=== PATIENT | male | born 1950 | race Caucasian/White ===

== ENCOUNTER 2017-11-13 06:05 | Day surgery (SDC) | payer MEDICARE, OTHER ==
[2017-11-12 15:35] LABS: BASOPHILS 0.3 % (0-2); EOSINOPHILS 2.6 % (0-7); HEMATOCRIT 40.9 % (42.0-54.0); HEMOGLOBIN 14.6 g/dL (13.5-17.5); IMMATURE GRANULOCYTES 0.3 % (0-5); LYMPHOCYTES 23.6 % (15-50); MCH 32.7 pg (26.0-34.0); MCHC 35.7 g/dL (31.0-37.0); MCV 91.7 fL (80.0-100.0); MEAN PLATELET VOLUME 10.7 fL (7.4-10.4); MONOCYTES 6.6 % (2-11); NEUTROPHILS 66.6 % (40-80); PLATELET COUNT 141 10x3/uL (130-400); RBC 4.46 10x6/uL (4.20-6.10); RDW 12.5 % (11.5-14.5); WBC 7.7 10x3/uL (4.8-10.8)
[2017-11-12 15:41] LABS: ANION GAP 10.1 mmol/L (8-16); CALCIUM 8.5 mg/dL (8.5-10.1); CREATININE - SERUM 1.2 mg/dL (0.6-1.3); POTASSIUM - SERUM 4.1 mmol/L (3.5-5.1)
[~2017-11-13] VITALS: Ht 177.8 cm; Wt 81.2 kg
--- NOTE | ~2017-11-13 | OP ---
PATIENT NAME: MANJEET TRAMMELL MEDICAL RECORD: [id number] :50 LOCATION:IAN ADMISSION DATE: SURGEON: VIMAL GARRISON MD DATE OF OPERATION: 11/13/2017 PREOPERATIVE DIAGNOSIS: Bilateral inguinal hernias. POSTOPERATIVE DIAGNOSIS: Bilateral inguinal hernias. PROCEDURE: Bilateral inguinal hernia repairs with medium PHS mesh. SURGEON: Vimal Garrison MD REPORT OF PROCEDURE: The patient's bilateral groins were prepped and draped in sterile fashion. We approached the right side first. An oblique incision was made above the inguinal ligament. Electrocautery was used to dissect through the subcutaneous tissues down to the external oblique fascia. This fascia was opened up to the external ring using Metzenbaum scissors. We then found the ilioinguinal nerve and this was high ligated. A [place]mont was placed around the spermatic cord. The patient was noted to have a moderate-sized cord lipoma, which was high ligated with a 3-0 silk. The base of the inguinal canal was very lax with some protuberance consistent with a wide-based direct hernia. An opening was made in the floor and the preperitoneal space of Retzius was out and a medium PHS mesh was inserted. This was sutured down on all 4 sides using multiple interrupted 0 Vicryls. We then irrigated out the wound and assured there was no sign of any bleeding. The external oblique fascia was closed with running 2-0 Vicryl, Renetta's was closed with interrupted 3-0 Vicryl, and the skin was closed with running subcutaneous 5-0 Monocryl. A total of 10 mL of 0.25% Marcaine with epinephrine was infused into the surrounding tissues. At this point, we approached the left side. An oblique incision was then made above the inguinal ligament. Electrocautery was used to dissect through the subcutaneous tissues down to the external oblique fascia. This fascia was opened up to the external ring using Metzenbaum scissors. The ilioinguinal nerve was found and high ligated. We then placed a Hilario around the spermatic cord. The patient was again noted to have a moderate-sized cord lipoma, which was high ligated with 3-0 silk. The patient had a lot of laxity to the inguinal floor consistent with a direct hernia defect. This was opened up and the preperitoneal space of Retzius was out. A medium PHS mesh was then inserted and sutured down on all sides using multiple interrupted 0 Vicryls. The wound was then irrigated out with normal saline and care was taken to assure there was no sign of any active bleeding. The external oblique fascia was then closed with running 2-0 Vicryl, Renetta's was closed with interrupted 3-0 Vicryl, and the skin was closed with running subcutaneous 5-0 Monocryl. A 10 mL of 0.25% Marcaine with epinephrine were infused into the surrounding tissues and then the 2 wounds were dressed appropriately. COMPLICATIONS: None. CONDITION: Stable. ANESTHESIA: General endotracheal and local. BLOOD LOSS: 30 mL. TRANSINT:[id number] Voice Confirmation ID: [id number] DOCUMENT ID: [id number] OPERATIVE REPORT [id number] MANJEET TRAMMELL CHRISTIAN MD at 2258 CC: QUIN MUNOZ MD [id number] DICTATION DATE: 11/13/17905 ADJUNCT INSTRUCTOR: 11/13/17 1031 [facility] 11/13/17 [facility] [address] [place] [address]
[2017-11-13 06:42] VITALS: BP 122/72; Ht 177.8 cm; Wt 81.2 kg
[2017-11-13] MEDS ORDERED: HYDROCODONE-APA1 TAB PO (09:02)
== END 2017-11-13 12:00 | disposition home or self-care (01) ==
LOC: D.OPS 06:05 → D.PAN 08:00 → D.OPS 12:00
PROVIDERS: Surgery
DX: K40.20 Bilateral inguinal hernia, without obstruction or gangrene, not specified as recurrent (principal); Z01.812 Encounter for preprocedural laboratory examination

== ENCOUNTER 2019-05-10 07:30 | Outpatient (CLI) | payer MEDICARE, BC ==
[~2019-05-10] VITALS: Ht 177.8 cm; Wt 81.8 kg
--- NOTE | ~2019-05-10 | OP ---
PATIENT NAME: MANJEET TRAMMELL MEDICAL RECORD: [id number] :50 LOCATION:D.CAT ADMISSION DATE: SURGEON: LEONELA PARKER MD DATE OF OPERATION: 05/10/2019 PROCEDURES: 1. PTCA stent LAD. 2. IFR. 3. Left heart catheterization. 4. Selective coronary angiography. DESCRIPTION OF PROCEDURE: After informed consent was obtained and after a detailed description of the risks, benefits as well as alternative therapies, the patient elected to proceed with angiogram and angioplasty. The right radial area was prepped and draped in normal sterile fashion. Right radial artery was cannulated via modified Seldinger technique with placement of 6-Mongolian sheath. All catheters exchanged through this sheath. FINDINGS: Left ventriculogram was performed in a standard 30-degree SAAB view, reveals good cardiac wall motion, ejection fraction estimated 60%. SELECTIVE CORONARY ANGIOGRAPHY: 1. Left main is with no significant angiographic disease. 2. Left anterior descending has a 70% stenosis in the proximal vessel. An IFR was abnormal. 3. Left circumflex has mild irregularities, but no flow-limiting stenosis. 4. Right coronary was very difficult to engage from the right radial approach. This has never really got engaged, but there is at least 80% stenosis at the ostium of the RCA. PTCA STENT OF THE LAD: The stent used was a 3.5 x 18 mm Integrity. Result was 0% residual stenosis. OVERALL IMPRESSION: Successful percutaneous transluminal coronary angioplasty stent of the left anterior descending going from 70% initial stenosis to 0% residual. PLAN: PTCA stent of the RCA via femoral approach in the near future. TRANSINT:[id number] Voice Confirmation ID: [id number] DOCUMENT ID: [id number] LEONELA PARKER MD CC: [id number] DICTATION DATE: 05/10/19 1000 BABY FORMULA WORKER: 05/10/19 1354 DEP CLI 05/10/19 [facility] [address] [place] [id number]
--- NOTE | ~2019-05-10 | HEMODYNAMI ---
PATIENT:MANJEET TRAMMELL MEDICAL RECORD: [id number] : 50 LOCATION:[facility] ADMISSION DATE: 05/10/19 Generatedon:05/10/201910:02 Patient name: MANJEET TRAMMELL Patient #: [id number] SSN: [id number] : 1950 Date of study: 05/10/2019 Page: Of Hemodynamic Procedure Report Patient Data Patient Demographics Procedure consent was obtained First Name: MANJEET Gender: Male Last Name: VALERI : 1950 Patient #: [id number] Age: 69 year(s) Race: SSN: [id number] Additional ID: [id number] Contact details Address: [address] [place] [address] State: [place] City: [facility] Zip code: [address] Past Medical History Allergies Allergen Reaction Date Comments Reported Other allergy 05/10/2019 WALNUTS, PEPPERMINTS Admission Admission Data Admission Date: 05/10/2019 Admission Time: 7:30 Arrival Date: 05/10/2019 Arrival Time: 9:30 Admit Source: Other Insurance Payor: Medicare, Private health insurance [facility] #: [id number] Height (in.): 69.69 BSA: 1.98 (m2) Height (cm.): 177 BMI: 25.85 (kg/m2) Weight (lbs.): 178.58 Weight (kg.): 81 Lab Results Lab Result Date: 05/10/2019 Lab Result Time: 0:00 Biochemistry Name Units Result Min Max BUN mg/dl 15 --(--*-)-- 7 18 Creatinine mg/dl 1.1 --(--*-)-- 0.6 1.3 eGFR ml/min 70.80039 *-(----)-- 90 120 NONAFRICAN CBC Name Units Result Min Max Hemoglobin g/dl 15 --(-*--)-- 13.5 17.5 Procedure Procedure Types Cath Procedure Diagnostic Procedure LHC LHC w/Coronaries FFR/IVUS FFR Initial Sedation Charges Moderate Sedation up to 30 minutes PCI Procedure Coronary Stent Coronary Stent Initial Hemochron ACT Test Procedure Description Procedure Date Procedure Date: 05/10/2019 Procedure Start Time: 9:39 Procedure End Time: 9:57 Procedure Staff Name Function Vishal Torres MD Performing Physician Jennie Purdy RT Monitor Angela Griggs RT Scrub Carmelina Miguel RN Nurse Procedure Data Cath Procedure Fluoroscopy Diagnostic fluoroscopy Total fluoroscopy Time: 5.6 time: 5.6 min min Diagnostic fluoroscopy Total fluoroscopy dose: 788 dose: 788 mGy mGy Contrast Material Contrast Material Type Amount (ml) Isovue 300 108 Entry Location Entry Primary Successful Side Size Upsize Upsize Entry Closure Cline ccessful Closure Location (Fr) 1 (Fr) 2 (Fr) Remarks Device Remarks Radial Right 6 Fr Mechanical artery Short Compression Estimated blood loss: 5 ml Diagnostic catheters Device Type Used For End Catheter Placement DIAGNOSTIC Falcon 110cm 5 Procedure Fr catheter ([id number]) DIAGNOSTIC AR MOD 5Fr Procedure Catheter ([id number]) Procedure Complications No complications Procedure Medications Medication Administration Route Dosage 0.9% NaCl I.V. 100 ml/hr Oxygen etCO2 Nasal cannula 2 l/min Lidocaine 2% added to field 20 Heparin Flush Bag added to field 2 bags (1000units/500ml NS) Radial Cocktail added to field 1 syringe (Verapamil 2mg/Nitro 400mcg/Heparin 1500units) Versed I.V. 2 mg Fentanyl I.V. 50 mcg Versed I.V. 2 mg Fentanyl I.V. 50 mcg Heparin Bolus I.V. 4000 units Integrilin (Bolus I.V. 7.3 ml 2mg/ml) Integrilin (Bolus wasted 2.7 ml 2mg/ml) Plavix P.O. 600 mg Hemodynamics Rest BSA: 1.98 (m2) HGB: 15 (g/dl) O2 Consumption: Estimated: 228.95 (ml/min) O2 Cons umption indexed: Estimated:115.63 (ml/min/m) Heart Rate: 69 (bpm) Snapshots Pre Cath Intra NCS Post Cath Vital Signs Time Heart Resp SPO2 etCO2 NIBP (mmHg) Rhythm Pain Sedation Rate (ipm) (%) (mmHg) Status Level (bpm) 9:22:57 69 17 97 38 138/80(111) NSR 0 (11) 10(A) , No pain 9:27:11 71 13 98 35.8 137/73(107) NSR 0 (11) 10(A) , No pain 9:31:23 63 17 96 38.8 135/73(96) NSR 0 (11) 10(A) , No pain 9:35:35 65 14 98 41.8 124/71(99) NSR 0 (11) 10(A) , No pain 9:39:43 65 14 95 40.3 117/71(108) NSR 0 (11) 10(A) , No pain 9:43:50 75 14 96 39.5 104/66(98) NSR 0 (11) 10(A) , No pain 9:47:52 70 16 97 35 114/65(80) NSR 0 (11) 9(A) , No pain 9:51:58 76 16 97 44 113/67(100) NSR 0 (11) 9(A) , No pain 9:56:06 69 17 96 32.1 114/60(84) NSR 0 (11) 10(A) , No pain Medications Time Medication Route Dose Verified Delivered Reason Note s Effectiveness by by 9:21:56 0.9% NaCl I.V. 100 Vishal Carmelina used for ml/hr Melissa Miguel agility instructor 9:22:02 Oxygen etCO2 2 l/min Vishal Carmelina used for Nasal Melissa Miguel procedure cannula RN 9:22:09 Lidocaine 2% added 20ml Vishal Vishal for local to vial Melissa Torres MD anesthetic field 9:22:14 Heparin Flush added 2 bags Vishaldada Rodgers used for Bag to Melissa Torres MD procedure (1000units/500ml field NS) 9:22:24 Radial Cocktail added 1 Vishal Vishal used for (Verapamil to syringe Melissa Torres MD procedure 2mg/Nitro field 400mcg/Heparin 1500units) 9:37:27 Versed I.V. 2 mg Vishal Carmelina for sedation Melissa Miguel RN 9:37:33 Fentanyl I.V. 50 mcg Vishal Carmelina for sedation Melissa Miguel RN 9:43:30 Versed I.V. 2 mg Vishal Carmelina for sedation Melissa Miguel RN 9:43:37 Fentanyl I.V. 50 mcg Vishal Cosme for sedation Melissa Miguel RN 9:46:48 Heparin Bolus I.V. 4000 Vishal Kata for veri fied units Melissa Miguel anticoagulation with Dr. DEVIKA Torres 9:47:01 Integrilin I.V. 7.3 ml Vishal Kata for (Bolus 2mg/ml) Melissa Miguel antiplatelet RN therapy 9:47:12 Integrilin wasted 2.7 ml Vishal Kata for (Bolus 2mg/ml) Melissa Miguel antiplatelet RN therapy 9:47:24 Plavix P.O. 600 mg Vishal Reinosoyla for Melissa Miguel antiplatelet RN therapy Procedure Log Time Note 8:52:55 Informed consent obtained and on chart 8:54:16 Admit Source: Other 9:06:34 Diagnostic Cath Status : Elective 9:07:10 Jennie GLOVER(R) sent for patient. Start room use. 9:07:12 Time tracking: Regular hours (M-F 7:00 - 5:00) 9:07:18 Plan of Care:Hemodynamics will remain stable., Cardiac rhythm will remain stable., Comfort level will be maintained., Respiratory function will remain adequate., Patient/ family verbilizes understanding of procedure., Procedure tolerated without complication., Recovers from procedure without complications.. 9:10:55 Lab Result : Hemoglobin 15 g/dl 9:10:55 Lab Result : eGFR NONAFRICAN 70.51005 ml/min 9:10:55 Lab Result : BUN 15 mg/dl 9:10:55 Lab Result : Creatinine 1.1 mg/dl 9:14:30 Arrival Date: 05/10/2019 9:30:00 AM 9:15:07 Insurance Payor : Private health insurance, Medicare 9:15:19 Patient Height : 69.69 inches 9:15:24 Patient Weight : 178.58 lbs 9:16:54 Patient received from Pre/Post Procedure Room to CCL 2 Alert and oriented. Tansferred to table in Supine position. 9:16:55 Warm blankets applied, and abigail hugger turned on for patient comfort. 9:16:56 Correct patient and procedure confirmed by team. 9:16:56 ECG and BP/O2 sat monitors applied to patient. 9:21:47 Vital chart was started 9:21:56 0.9% NaCl 100 ml/hr I.V. was administered by Caremlina Miguel RN; used for procedure; Verbal order read back and verified. 9:22:02 Oxygen 2 l/min etCO2 Nasal cannula was administered by Carmelina Miguel RN; used for procedure; Verbal order read back and verified. 9:22:09 Lidocaine 2% 20ml vial added to field was administered by Vishal Torres MD; for local anesthetic; Verbal order read back and verified. 9:22:14 Heparin Flush Bag (1000units/500ml NS) 2 bags added to field was administered by Vishal Torres MD; used for procedure; Verbal order read back and verified. 9:22:24 Radial Cocktail (Verapamil 2mg/Nitro 400mcg/Heparin 1500units) 1 syringe added to field was administered by Vishal Torres MD; used for procedure; Verbal order read back and verified. 9:24:37 Baseline sample Acquired. 9:24:40 Rhythm: sinus rhythm 9:24:42 Full Disclosure recording started 9:24:51 H&P Date Dictated: 04/20/2019 Within 30 days and on chart., H&P Addendum completed by physician on day of procedure. (MUST COMPLETE FOR ALL OUTPATIENTS). 9:24:52 Pre-procedure instructions explained to patient. 9:24:52 Pre-op teaching completed and patient verbalized understanding. 9:24:53 Family in patients room. 9:24:55 Patient NPO since Midnight. 9:25:12 Patient allergic to Other allergyWALNUTS, PEPPERMINTS 9:25:15 Is patient on blood thinner?No 9:25:33 Patient diabetic? No. 9:25:37 Previous problem with sedation/anesthesia? No ? 9:25:38 Snore? Yes 9:25:39 Sleep apnea? No 9:25:41 Deviated septum? No 9:25:41 Opens mouth fully? Yes 9:25:43 Sticks out tongue? Yes 9:25:45 Airway obstruction? No ? 9:25:48 Dentures? Yes OUT 9:25:52 Pre procedure: right dorsailis pedis pulse 1+ Palpable, but thready & weak; easily obliterated 9:25:54 Modified Kenneth's test Ulnar < 7 seconds 9:25:56 Patient pain scale 0/10 ?. 9:26:05 IV patent on arrival in left wrist with 0.9% NaCl at KVO. 9:26:07 Lab results completed and on chart. 9:26:10 Right Radial & Right Groin area was prepped with chlora-prep and draped in sterile fashion 9:26:11 Alarms reviewed by R. N. 9:26:11 Sharps counted by scrub and verified by R.N. 9:26:14 Use device set Radial Dx or PCI 9:26:15 ACIST Syringe (76935) opened to sterile field. 9:26:15 Bag Decanter (2002S) opened to sterile field. 9:26:16 ACIST Hand Control (17296) opened to sterile field. 9:26:16 ACIST Manifold (18484) opened to sterile field. 9:26:16 Tegaderm 4 x 4 (1626W) opened to sterile field. 9:26:17 Medline Cath Pack ([id number]) opened to sterile field. 9:26:18 MBrace Wrist Support ([id number]) opened to sterile field. 9:26:19 EMERALD Guide Wire (816-575) opened to sterile field. 9:26:20 SHEATH 6FR RAIN (1528903) opened to sterile field. 9:30:55 Physician arrived 9:30:56 --------ALL STOP TIME OUT------ 9:30:57 Final Timeout: patient, procedure, and site verified with staff and physician. All members of the team are in agreement. 9:31:00 Right Radial & Right Groin site verified by team. 9:31:04 Fire Safety Assessment: A--An alcohol-based skin anteseptic being used preoperatively., C--Open oxygen or nitrous oxide is being used., D--An ESU, laser, or fiber-optic light is being used. 9:31:13 Physical assessment completed. ASA score P 3 - A patient with severe systemic disease as per Vishal Torres MD. 9:36:38 2) 60-89 Mildly reduced kidney function, and other findings (as for stage 1) point to kidney disease. 9:36:43 Maximum allowable contrast dose (3.7 X eGFR X 0.75)194 ml. 9:36:48 Sedation plan: IV Moderate Sedation Medication:Versed, Fentanyl 9:37:27 Versed 2 mg I.V. was administered by Carmelina Miguel RN; for sedation; Verbal order read back and verified. 9:37:33 Fentanyl 50 mcg I.V. was administered by Carmelina Miguel RN; for sedation; Verbal order read back and verified. 9:39:26 Procedure started. 9:39:37 Local anesthetic to right radial artery with Lidocaine 2% by Vishal Torres MD.INITIAL ACCESS ONLY 9:39:48 A 6 Fr Short sheath was inserted into the Right Radial artery 9:40:27 A DIAGNOSTIC Falcon 110cm 5 Fr catheter (933934) was advanced over the wire and used for Procedure. 9:41:41 EF : 60 % 9:42:11 LCA angiography performed. 9:43:30 Versed 2 mg I.V. was administered by Carmelina Miguel RN; for sedation; Verbal order read back and verified. 9:43:37 Fentanyl 50 mcg I.V. was administered by Carmelina Miguel RN; for sedation; Verbal order read back and verified. 9:44:59 Catheter removed. 9:45:13 A DIAGNOSTIC AR MOD 5Fr Catheter (024038F) was advanced over the wire and used for Procedure. 9:45:18 RCA angiography performed. 9:45:20 Catheter removed. 9:45:41 GUIDE 6FR XB 3.5 catheter ([id number]) opened to sterile field. 9:45:42 INFLATOR Merit BasixCompak (LC2677) opened to sterile field. 9:45:43 Mcdermott Verrata Plus pressure wire (84985C) opened to sterile field. 9:45:48 Proceeding to intervention. 9:46:00 6 Fr XB3.5 guide catheter was inserted over the wire 9:46:21 IFR wire advanced. 9:46:48 Heparin Bolus 4000 units I.V. was administered by Carmelina Miguel RN; for anticoagulation; verified with Dr. Torres Verbal order read back and verified. 9:47:01 Integrilin (Bolus 2mg/ml) 7.3 ml I.V. was administered by Carmelina Miguel RN; for antiplatelet therapy; Verbal order read back and verified. 9:47:12 Integrilin (Bolus 2mg/ml) 2.7 ml wasted was administered by Carmelina Miguel RN; for antiplatelet therapy; Verbal order read back and verified. 9:47:24 Plavix 600 mg P.O. was administered by Carmelina Miguel RN; for antiplatelet therapy; Verbal order read back and verified. 9:51:45 pLAD lesion measured at .83 with IFR 9:51:58 Pre PCI Site: [place] pLAD has 70% stenosis. 9:52:36 Place stent Inflation Number: 1 A INTEGRITY RX 3.5 x 18 stent ([id number]) was prepped and advanced across the Prox LAD 70. The stent was deployed at 11 VANDANA for 0:09 (min:sec) . 9:52:57 ZEPHYR REGULAR TR BAND (901688) opened to sterile field. 9:53:13 Wire removed. 9:53:13 Guide catheter removed. 9:53:35 Sheath removed intact; hemostasis achieved with Mechanical Compression to the Right Radial artery. 9:53:40 Procedure ended.(Physican Out) 9:53:51 Fluoroscopy time 05.60 minutes. 9:53:57 Fluoroscopy dose: 788 mGy 9:53:57 Flurop Dose total: 788 9:54:02 Dose Area Product 36112 mGy/cm. 9:54:08 Contrast amount:Isovue 300 108ml. 9:54:12 Maximum allowable dose exceeded? No. 9:54:14 Sharps counted by scrub and verified by R.N. 9:54:18 Elgin band inflated with 10cc of air. 9:54:23 Insertion/operative site no bleeding no hematoma. 9:54:25 Post Procedure Pulses reassessed and unchanged 9:54:30 Post-procedure physical assessment completed. ASA score P 3 - A patient with severe systemic disease as per Vishal Torres MD. 9:54:33 Post procedure rhythm: sinus rhythm 9:54:40 Estimated blood loss: 5 ml 9:54:44 Post procedure instruction explained to patient.Patient verbalizes understanding. 9:55:14 Procedure type changed to Cath procedure, Diagnostic procedure, LHC, LHC w/Coronaries, FFR/IVUS, FFR Initial, Sedation Charges, Moderate Sedation up to 30 minutes, PCI procedure, Coronary Stent, Coronary Stent Initial, Hemochron ACT Test 9:55:16 Procedure and supply charges have been captured, reviewed, submitted and are correct. 9:56:13 Procedure and supply charges have been captured, reviewed, submitted and are correct. 9:56:42 Procedure Complication : No complications 9:56:45 Vital chart was stopped 9:56:52 [facility] Findings: MVD- PCI performed (see procedure note) 9:56:54 Operative report dictated upon procedure completion. 9:56:57 See physician's report for complete and final results. 9:56:59 Report given to Pre/Post Procedure Room. 9:57:03 Patient transfered to Pre/Post Procedure Room with Stretcher. 9:57:05 Procedure ended. 9:57:05 Full Disclosure recording stopped 9:57:12 End room use (Document Last) 9:57:19 ACC-PCI Only Patient was given prescriptions, or instructed by Vishal Torres MD to start/continue the following medications upon discharge: Plavix 9:59:08 ACT drawn and resulted at >400-out of range seconds. (normal therapeutic range 180-240 seconds). Intervention Summary Intervention Notes Time ActionType Lesion and Equipment Action# Pressure Duration Attributes Used 9:52:36 Place stent Prox LAD INTEGRITY RX 1 11 00:09 3.5 x 18 stent ([id number]) Device Usage Item Name Manufacture Quantity Catalog Hospital Part Current Min imal Lot# / Number Charge Number Stock Stock Serial# Code ACIST Acist 1 21358 642082 396777 568079 20 Syringe Medical (02191) Systems Inc Bag Decanter Microtek 1 2001S 083875 79087 272774 5 (2001S) Medical Inc. ACIST Hand Acist 1 20389 838777 989685 024177 5 Control Medical (57640) Systems Inc ACIST Acist 1 51651 115990 724489 860055 5 Manifold Medical (52402) Systems Inc Tegaderm 4 x 3M 1 1626W 154153 400134 107093 5 4 (1626W) Medline Cath Medline 1 [id number] 369808 05464 962138 5 Pack ([id number]) MBrace Wrist Advanced 1 140-0250-00 007079 40277 501914 5 Support Vascular (210118321) Dynamics EMERALD Cardinal 1 253-525 326756 386323 559223 5 Guide Wire [facility] (885-688) SHEATH 6FR Cardinal 1 5523038 564931 9336117 276661 5 RAIN [facility] (6652069) DIAGNOSTIC Terumo 1 40-4429 535610 793731 555722 5 Falcon 110cm 5 Fr catheter (142260) DIAGNOSTIC Cardinal 1 [id number] 696349 530878 654302 15 AR MOD 5Fr Health Catheter (061173P) GUIDE 6FR XB Cardinal 1 47822845 923027 036121 061099 2 3.5 catheter Health (73718952) INFLATOR Merit 1 UN9968 849041 731910 354341 15 Merit Medical BasixCompak (FW8034) Mcdermott Mcdermott 1 65362H 420495 183098999 455707 5 Verrata Plus pressure wire (68495L) INTEGRITY RX Medtronic 1 [id number] 943792 622042 428228 5 [id number] 3.5 x 18 stent ([id number]) ZEPHYR Cardinal 1 758882 911385 6744280 778946 5 REGULAR TR Health BAND (424789) Signature Audit [place] Stage Time Signature Unsigned Intra-Procedure 05/10/2019 Jennie Purdy 9:58:02 AM RT(R) Intra-Procedure 05/10/2019 Carmelina Miguel 10:01:42 AM RN Intra-Procedure 05/10/2019 Vishal Torres 10:02:09 AM Signatures Performing Physician : Signature : Vishal Torres MD Date : Time : Monitor : Jnenie Purdy Signature : RT Date : Time : Nurse : Carmelina Miguel RN Signature : Date : Time : [facility] [address], [place] [address]
[~2019-05-10 07:30] MED LIST: HYDROCODONE-APA1 TAB PO
[2019-05-10] MEDS ORDERED: FLUTICASONE PRO16 GM NASAL (07:49)
[2019-05-10 08:02] VITALS: BP 117/63; Ht 177.8 cm; Wt 81.8 kg
[2019-05-10 08:58] LABS: ANION GAP 11.4 mmol/L (8-16); BASOPHILS 0.5 % (0-2); CALCIUM 8.9 mg/dL (8.5-10.1); CARBON DIOXIDE 27.4 mmol/L (21.0-32.0); CHOL - HDL RATIO 4.4 ratio (2.3-4.9); CREATININE - SERUM 1.1 mg/dL (0.6-1.3); EOSINOPHILS 1.8 % (0-7); HEMATOCRIT 41.7 % (42.0-54.0); IMMATURE GRANULOCYTES 0.2 % (0-5); LYMPHOCYTES 28.3 % (15-50); MCH 33.1 pg (26.0-34.0); MCV 92.1 fL (80.0-100.0); MEAN PLATELET VOLUME 11.1 fL (7.4-10.4); MONOCYTES 9.1 % (2-11); NEUTROPHILS 60.1 % (40-80); PLATELET COUNT 136 10x3/uL (130-400); POTASSIUM - SERUM 3.8 mmol/L (3.5-5.1); RBC 4.53 10x6/uL (4.20-6.10); RDW 12.7 % (11.5-14.5); WBC 5.5 10x3/uL (4.8-10.8)
[2019-05-10] MEDS ORDERED: BAYER CHEWABLE81 MG PO (10:06)
[2019-05-10] MEDS ORDERED: PLAVIX75 MG PO (10:06)
--- NOTE | 2019-05-10 10:10 | NUR ---
REC'D TO ROOM 8 VIA STRETCHER, S/P SOCK AND STOCKING IRONER. MONITORS ESTAB. AT BS. PT DENIES PAIN OR NEEDS. SEE TRUCK DOCK MATERIAL MOVER. ALARMS ON AND C/L IN REACH.
--- NOTE | 2019-05-10 10:23 | NUR ---
R WRIST SITE C/D/I, NO S/S BLEEDING OR HEMATOMA. VSS. ALARMS ON.
--- NOTE | 2019-05-10 10:54 | NUR ---
PT RESTING QUIETLY. R WRIST SITE C/D/I, NO S/S BLEEDING OR HEMATOMA. REMAINS AT BS. C/L IN REACH.
--- NOTE | 2019-05-10 11:09 | NUR ---
R WRIST SITE C/D/I. VSS. PT DENIES NEEDS.
--- NOTE | 2019-05-10 11:15 | NUR ---
DR. PARKER IN TO UPDATE PT AND . PLAN FOR GARMENT STEAMER THIS FRIDAY.
--- NOTE | 2019-05-10 11:45 | NUR ---
R WRIST SITE C/D/I, NO S/S BLEEDING OR HEMATOMA. PT GIVEN TEA PER REQUEST. VSS. C/L IN REACH.
--- NOTE | 2019-05-10 12:05 | NUR ---
SANDWICH TRAY PROVIDED. R WRIST SITE C/D/I. VSS. AT BS.
[2019-05-10] MEDS ORDERED: PRAVACHOL40 MG PO (12:29)
--- NOTE | 2019-05-10 12:37 | NUR ---
PRESCRIPTIONS CALLED IN TO [facility] PER PT REQUEST.
--- NOTE | 2019-05-10 13:00 | NUR ---
3CC AIR REMOVED FROM Z BAND. NO S/S BLEEDING OR HEMATOMA.
--- NOTE | 2019-05-10 13:15 | NUR ---
TOTAL 5CC AIR REMOVED FROM Z BAND. NO S/S BLEEDING/HEMATOMA. VSS.
--- NOTE | 2019-05-10 13:40 | NUR ---
ALL AIR REMOVED FROM Z BAND, NO S/S BLEEDING OR HEMATOMA.
--- NOTE | 2019-05-10 13:45 | NUR ---
PIV D/C'D INTACT, DSG APPLIED. PT UP TO BR INDEPENDENTLY. R WRIST SITE C/D/I.
--- NOTE | 2019-05-10 13:45 | NUR ---
PIV D/C'D INTACT, DSG APPLIED. PT UP TO BR INDEPENDENTLY.
--- NOTE | 2019-05-10 13:50 | NUR ---
ALL DISCHARGE INSTRUCTIONS REVIEWED WITH PT AND HIS - INCLUDING MEDICATIONS, RESTRICTIONS AND PLANNED PROCEDURE FOR FRIDAY. PT ALLOWED TO GET UP AND GET DRESSED.
--- NOTE | 2019-05-10 13:50 | NUR ---
ALL D/C INSTRUCTIONS REVIEWED WITH PT AND - INCLUDING MEDICATIONS, RESTRICTIONS AND PLAN FOR PROCEDURE FRIDAY. PT UP TO GET DRESSED.
--- NOTE | 2019-05-10 14:00 | NUR ---
Z BAND OFF, DSG APPLIED, NO S/S BLEEDING OR SWELLING. PT DC'D VIA W/C TO PRIVATE VEHICLE WITH ALL PAPER WORK AND BELONGINGS.
== END 2019-05-10 14:00 | disposition home or self-care (01) ==
LOC: D.CATH 07:30
PROVIDERS: ATTEND Internal Medicine Interventional Cardiology
DX: R07.9 Chest pain, unspecified (principal); I25.10 Atherosclerotic heart disease of native coronary artery without angina pectoris

== ENCOUNTER 2019-05-14 06:53 | Outpatient (CLI) | payer MEDICARE, BC ==
[~2019-05-14] VITALS: Ht 177.8 cm; Wt 81.8 kg
--- NOTE | ~2019-05-14 | HEMODYNAMI ---
PATIENT:MANJEET TRAMMELL MEDICAL RECORD: [id number] : 50 LOCATION:[place] ADMISSION DATE: 05/14/19 Generatedon:05/14/20198:54 Patient name: MANJEET TRAMMELL Patient #: [id number] SSN: [id number] : 1950 Date of study: 05/14/2019 Page: Of Hemodynamic Procedure Report Patient Data Patient Demographics Procedure consent was obtained First Name: MANJEET Gender: Male Last Name: VALERI : 1950 Patient #: [id number] Age: 69 year(s) Race: SSN: [id number] Additional ID: [id number] Contact details Address: [address] [place] [address] State: [place] City: [facility] Zip code: [address] Past Medical History Allergies Allergen Reaction Date Comments Reported Other allergy 05/14/2019 WALNUTS, PEPPERMINTS Admission Admission Data Admission Date: 05/14/2019 Admission Time: 6:53 Height (in.): 70.08 BSA: 2 (m2) Height (cm.): 178 BMI: 25.88 (kg/m2) Weight (lbs.): 180.78 Weight (kg.): 82 Current Diagnosis Diagnosis Description Unstable angina Lab Results Lab Result Date: 05/14/2019 Lab Result Time: 0:00 Biochemistry Name Units Result Min Max eGFR ml/min 70.00576 *-(----)-- 90 120 NONAFRICAN Procedure Procedure Types Cath Procedure Diagnostic Procedure Sedation Charges Moderate Sedation up to 15 minutes PCI Procedure Coronary Stent Coronary Stent Initial Hemochron ACT Test Procedure Description Procedure Date Procedure Date: 05/14/2019 Procedure Start Time: 8:40 Procedure End Time: 8:51 Procedure Staff Name Function Vishal Torres MD Performing Physician Helen Aldana RT Monitor Daniele Grossman RT Scrub Carmelina Miguel RN Nurse Procedure Data Cath Procedure Fluoroscopy Diagnostic fluoroscopy Total fluoroscopy Time: 0 time: 0 min min Diagnostic fluoroscopy Total fluoroscopy dose: dose: 48.92 mGy 48.92 mGy Contrast Material Contrast Material Type Amount (ml) Isovue 300 38 Entry Location Entry Primary Successful Side Size Upsize Upsize Entry Closure Succes sful Closure Location (Fr) 1 (Fr) 2 (Fr) Remarks Device Remarks Femoral Right 6 Fr Exoseal artery Short Estimated blood loss: 10 ml Procedure Complications No complications Procedure Medications Medication Administration Route Dosage 0.9% NaCl I.V. 100 ml/hr Oxygen etCO2 Nasal cannula 2 l/min Lidocaine 2% added to field 20 Heparin Flush Bag added to field 2 bags (1000units/500ml NS) Versed 2 mg Fentanyl I.V. 50 mcg Versed 2 mg Fentanyl I.V. 50 mcg Heparin Bolus I.V. 4000 units Versed 1 mg Hemodynamics Rest BSA: 2 (m2) O2 Consumption: Estimated: 272 (ml/min) O2 Consumption indexed: Anna mated:136 (ml/min/m) Pre Cath Intra NCS Post Cath Vital Signs Time Heart Resp SPO2 etCO2 NIBP (mmHg) Rhythm Pain Sedation Rate (ipm) (%) (mmHg) Status Level (bpm) 8:17:09 74 11 99 38 155/89(122) NSR 0 (11) 10(A) , No pain 8:21:21 70 14 100 32.7 129/87(108) NSR 0 (11) 10(A) , No pain 8:25:29 71 17 100 34.3 135/74(93) NSR 0 (11) 10(A) , No pain 8:29:40 68 16 98 35.8 136/70(96) NSR 0 (11) 10(A) , No pain 8:33:50 69 12 98 35.8 133/76(106) NSR 0 (11) 10(A) , No pain 8:37:56 75 16 96 39.6 128/86(119) NSR 0 (11) 10(A) , No pain 8:42:06 75 17 96 35.8 138/70(111) NSR 0 (11) 10(A) , No pain 8:46:18 77 18 97 37.3 134/69(103) NSR 0 (11) 10(A) , No pain 8:50:30 71 7 98 35.8 134/69(91) NSR 0 (11) 10(A) , No pain Medications Time Medication Route Dose Verified Delivered Reason Notes Effectiveness by by 8:16:13 0.9% NaCl I.V. 100 Vishal Carmelina used for ml/hr Melissa Miguel spanish interpreter/translator 8:16:18 Oxygen etCO2 2 Vishal Carmelina used for Nasal l/min Melissa Miguel procedure cannula RN 8:16:23 Lidocaine 2% added 20ml Vishal Vishal for local to vial Melissa Torres MD anesthetic field 8:16:27 Heparin Flush added 2 Vishal Vishal used for Bag to bags Melissa Torres MD procedure (1000units/500ml field NS) 8:30:28 Versed 2 mg Vishal Carmelina for sedation Melissa Mgiuel RN 8:30:41 Fentanyl I.V. 50 Vishal Carmelina for sedation mcg Melissa Miguel RN 8:37:21 Versed 2 mg Vishal Carmelina for sedation Melissa Miguel RN 8:37:28 Fentanyl I.V. 50 Vishal Carmelina for sedation mcg Melissa Miguel RN 8:40:24 Heparin Bolus I.V. 4000 Vishal Carmelina for verifi ed units Melissa Miguel anticoagulation with Dr. DEVIKA Torres 8:42:06 Versed 1 mg Vishal Carmelina for sedation Melissa Miguel supply chain vice president Log Time Note 8:02:13 Informed consent obtained and on chart 8:02:38 Procedure Status Elective Heart Cath (OP). 8:02:41 Daniele Grossman RT(R) (CV) sent for patient. Start room use. 8:02:43 Time tracking: Regular hours (M-F 7:00 - 5:00) 8:02:47 Plan of Care:Hemodynamics will remain stable., Cardiac rhythm will remain stable., Comfort level will be maintained., Respiratory function will remain adequate., Patient/ family verbilizes understanding of procedure., Procedure tolerated without complication., Recovers from procedure without complications.. 8:02:53 H&P Date Dictated: 05/14/2019 Within 30 days and on chart.. 8:03:34 Stress Test: yes; abnormal MIXED PERFUSION DEFECT 8:03:56 Patient not . Patient is over age 55. 8:04:51 Patient allergic to Other allergyWALNUTS, PEPPERMINTS 8:05:07 Patient Height : 70.08 inches 8:05:13 Patient Weight : 180.78 lbs 8:05:18 Current Diagnosis : Unstable angina 8:06:54 Diagnostic Cath Status : Elective 8:07:01 ACC Patient presents with Unstable Angina CCS Anginal Class 3--Marked limitation of physical activity, angina occurs with ordinary activity.. 8:07:09 Is the patient allergic to Iodine/contrast media? No. 8:07:11 Was the patient premedicated? N/A 8:07:29 Is patient on blood thinner?Yes 8:07:32 ACC The patient was administered the following blood thiners within the last 24 hours: ACCPlavix 8:07:36 Patient diabetic? No. 8:07:38 If diabetic: On Metformin? N/A 8:08:43 Patient received from Pre/Post Procedure Room to CCL 3 Alert and oriented. Tansferred to table in Supine position. 8:08:44 Warm blankets applied, and abigail hugger turned on for patient comfort. 8:08:45 Correct patient and procedure confirmed by team. 8:08:45 ECG and BP/O2 sat monitors applied to patient. 8:08:48 Pre-procedure instructions explained to patient. 8:08:49 Pre-op teaching completed and patient verbalized understanding. 8:08:51 Family in patients room. 8:08:52 Patient NPO since Midnight. 8:09:24 Risk of Mortality: 0.1 8:09:26 Risk of blood transfusion: 0.1 8:09:28 Risk of RENE: 0.1 8:09:37 Previous problem with sedation/anesthesia? No ? 8:09:43 Snore? Yes 8:09:44 Sleep apnea? No 8:09:46 Deviated septum? No 8:09:47 Opens mouth fully? Yes 8:09:49 Sticks out tongue? Yes 8:09:51 Airway obstruction? No ? 8:09:54 Dentures? No ? 8:16:02 Vital chart was started 8:16:13 0.9% NaCl 100 ml/hr I.V. was administered by Carmelina Miguel RN; used for procedure; Verbal order read back and verified. 8:16:18 Oxygen 2 l/min etCO2 Nasal cannula was administered by Carmelina Miguel RN; used for procedure; Verbal order read back and verified. 8:16:23 Lidocaine 2% 20ml vial added to field was administered by Vishal Torres MD; for local anesthetic; Verbal order read back and verified. 8:16:27 Heparin Flush Bag (1000units/500ml NS) 2 bags added to field was administered by Vishal Torres MD; used for procedure; Verbal order read back and verified. 8:16:42 Pre procedure: right dorsailis pedis pulse 2+ Normal; easily identifiable; not easily obliterated 8:16:45 Patient pain scale 0/10 ?. 8:16:53 IV patent on arrival in left forearm with 0.9% NaCl at [facility]. 8:17:06 Right groin area was prepped with chlora-prep and draped in sterile fashion 8:17:07 Sharps counted by scrub and verified by R.N. 8:17:07 Alarms reviewed by R. N. 8:20:49 Lab Result : eGFR NONAFRICAN 70.85307 ml/min 8:21:24 SHEATH 6FR [place] (UTC223) opened to sterile field. 8:21:25 CHOICE PT Extra Support 182cm wire ([id number]) opened to sterile field. 8:21:25 EMERALD Guide Wire (633-105) opened to sterile field. 8:21:26 INFLATOR Merit BasixCompak (AL3286) opened to sterile field. 8:29:28 Physician arrived 8:29:29 --------ALL STOP TIME OUT------ 8:29:30 Final Timeout: patient, procedure, and site verified with staff and physician. All members of the team are in agreement. 8:29:44 Right groin site verified by team. 8:30:03 Fire Safety Assessment: A--An alcohol-based skin anteseptic being used preoperatively., C--Open oxygen or nitrous oxide is being used., D--An ESU, laser, or fiber-optic light is being used. 8:30:07 Physical assessment completed. ASA score P 2 - A patient with mild systemic disease as per Vishal Torres MD. 8:30:13 2) 60-89 Mildly reduced kidney function, and other findings (as for stage 1) point to kidney disease. 8:30:19 Maximum allowable contrast dose (3.7 X eGFR X 0.75)194 ml. 8:30:25 Sedation plan: IV Moderate Sedation Medication:Versed, Fentanyl 8:30:28 Versed 2 mg was administered by Carmelina Miguel RN; for sedation; Verbal order read back and verified. 8:30:41 Fentanyl 50 mcg I.V. was administered by Carmelina Miguel RN; for sedation; Verbal order read back and verified. 8:32:13 Zero performed for pressure channel P1 8:32:50 Use device set Femoral Dx 8:32:53 ACIST Syringe (06227) opened to sterile field. 8:32:54 Bag Decanter (2001S) opened to sterile field. 8:32:55 Medline Cath Pack ([id number]) opened to sterile field. 8:32:56 ACIST Hand Control (00069) opened to sterile field. 8:32:57 ACIST Manifold (43803) opened to sterile field. 8:33:01 Tegaderm 4 x 4 (1626W) opened to sterile field. 8:33:03 EMERALD Guide Wire (213-458) opened to sterile field. 8:34:01 PCI Cath status Elective 8:35:20 Pre PCI Site: Solomon pRCA has 80% stenosis. 8:35:26 ACC Pre-intervention LOKESH Flow is 3. 8:37:21 Versed 2 mg was administered by Carmelina Miguel RN; for sedation; Verbal order read back and verified. 8:37:28 Fentanyl 50 mcg I.V. was administered by Carmelina Miguel RN; for sedation; Verbal order read back and verified. 8:38:49 Procedure started. 8:38:49 Full Disclosure recording started 8:39:32 Asahi Minamo 190cm wire opened to sterile field. 8:39:54 GUIDE 6FR AR 1.0 SH catheter ([id number]) opened to sterile field. 8:40:06 Local anesthetic to right femoral artery with Lidocaine 2% by Vishal Torres MD.INITIAL ACCESS ONLY 8:40:19 A 6 Fr Short sheath was inserted into the Right Femoral artery 8:40:24 Heparin Bolus 4000 units I.V. was administered by Carmelina Miguel RN; for anticoagulation; verified with Dr. Torres Verbal order read back and verified. 8:40:35 6 Fr AR1SH guide catheter was inserted over the wire 8:40:46 MINAMO wire advanced. 8:41:00 Wire advanced across lesion IN THE OSTIUM OF THE RCA. 8:42:06 Versed 1 mg was administered by Carmelina Miguel RN; for sedation; Verbal order read back and verified. 8:43:39 Place stent Inflation Number: 1 A HARPER RX 3.0 x 15 stent ([id number]) was prepped and advanced across the Prox RCA . The stent was deployed at 13 VANDANA for 0:00 (min:sec) . 8:43:54 ACC Post-intervention LOKESH Flow is 3. 8:43:56 Stent catheter was removed intact over wire. 8:43:57 Wire removed. 8:43:59 Guide catheter removed. 8:44:41 EXOSEAL 6Fr (EX600) opened to sterile field. 8:44:58 Sheath removed intact; hemostasis achieved with Exoseal to the Right Femoral artery. 8:45:01 Procedure ended.(Physican Out) 8:46:34 Contrast amount:Isovue 300 38ml. 8:46:53 Fluoroscopy time 00.00 minutes. 8:47:01 Flurop Dose total: 48.92 8:47:01 Fluoroscopy dose: 48.92 mGy 8:47:12 Dose Area Product 478.91 mGy/cm. 8:47:16 Maximum allowable dose exceeded? No. 8:47:17 Sharps counted by scrub and verified by R.N. 8:47:19 Insertion/operative site no bleeding no hematoma. 8:47:25 Post-op/insertion site Right Femoral artery dressed using a 4 x 4 and Tegaderm. 8:47:29 Post right femoral artery:stable 8:47:31 Post Procedure Pulses reassessed and unchanged 8:47:39 Post-procedure physical assessment completed. ASA score P 2 - A patient with mild systemic disease as per Vishal Torres MD. 8:47:43 Post procedure rhythm: unchanged. 8:47:47 Estimated blood loss: 10 ml 8:47:49 Post procedure instruction explained to patient.Patient verbalizes understanding. 8:47:50 Patient needs reinforcement of post procedure teaching. 8:48:53 Procedure type changed to Cath procedure, Diagnostic procedure, Sedation Charges, Moderate Sedation up to 15 minutes, PCI procedure, Coronary Stent, Coronary Stent Initial, Hemochron ACT Test 8:48:56 Procedure and supply charges have been captured, reviewed, submitted and are correct. 8:51:09 ACT drawn and resulted at 309 seconds. (normal therapeutic range 180-240 seconds). 8:51:24 Procedure Complication : No complications 8:51:27 Vital chart was stopped 8:51:29 [facility] Findings: MVD- PCI performed (see procedure note) 8:51:34 Operative report dictated upon procedure completion. 8:51:35 See physician's report for complete and final results. 8:51:37 Report given to Pre/Post Procedure Room. 8:51:41 Patient transfered to Pre/Post Procedure Room with Stretcher. 8:51:44 Procedure ended. 8:51:44 Full Disclosure recording stopped 8:52:06 End room use (Document Last) Intervention Summary Intervention Notes Time ActionType Lesion and Equipment Used Action# Pressure Duration Attributes 8:43:[address] stent Prox RCA HARPER RX 3.0 x 1 13 00:00 15 stent ([id number]) Device Usage Item Name Manufacture Quantity Catalog Number Hospital Part Current M inimal Lot# / Charge Number Stock Stock Serial# Code SHEATH 6FR Terumo 1 [id number] 184024 777994 4 0 [place] (MJJ373) CHOICE PT [place] 1 [id number] 225592 915428 495188 5 Extra Support Scientific 182cm wire ([id number]) EMERALD Guide Cardinal 2 502-455 788074 301089 521638 5 Wire (502-294) Health INFLATOR Merit Merit 1 [id number] 715102 669533 525119 1 5 [facility] Hospital[facility] (CI3167) ACIST Syringe Acist 1 80052 391758 522286 206741 2 0 (18883) Medical Systems Inc Bag Decanter Microtek 1 2001S 563185 54374 417149 5 (2001S) Medical Inc. Medline Cath Medline 1 [id number] 300440 77663 182766 5 Pack ([id number]) ACIST Hand Acist 1 32233 476931 229994 852311 5 Control Medical (72672) Systems Inc ACIST Manifold Acist 1 06259 252735 909960 717624 5 (57040) Medical Systems Inc Tegaderm 4 x 4 3M 1 1626W 428720 637255 291645 5 (1626W) Mitul Bauman Intecc 1 [id number] 138748 1134231 2852063 0 190cm wire GUIDE 6FR AR Medtronic 1 [id number] 437192 02110 334294 1 1.0 SH catheter ([id number]) HARPER RX 3.0 x Medtronic 1 [id number] 437643 6752047 921482 5 [id number] 15 stent ([id number]) EXOSEAL 6Fr Cardinal 1 EX600 972372 308682 913453 1 0 (EX600) Health Signature Audit [place] Stage Time Signature Unsigned Intra-Procedure 05/14/2019 Helen 8:52:31 AM Katya RT(R) (CV) Intra-Procedure 05/14/2019 Carmelina Miguel 8:53:16 AM RN Intra-Procedure 05/14/2019 Vishal Torres 8:54:07 AM [facility] [address] [place] [address]
--- NOTE | ~2019-05-14 | OP ---
PATIENT NAME: MANJEET TRAMMELL MEDICAL RECORD: [id number] :50 LOCATION:[facility] ADMISSION DATE: SURGEON: LEONELA PARKER MD DATE OF OPERATION: 05/14/2019 DATE OF SERVICE: 05/14/2019 PROCEDURES: 1. PTCA stent RCA. 2. Selective coronary angiography. INDICATION: Angina and coronary artery disease. PROCEDURE PERFORMED: After informed consent was obtained and after a detailed description of risks, benefits as well as alternative therapies, the patient elected to proceed with angiogram and angioplasty. The right femoral area was prepped and draped in normal sterile fashion. Right femoral artery was cannulated via modified Seldinger technique with placement of 6-Persian sheath. All catheters exchanged through this sheath. FINDINGS: The right coronary artery has 80% stenosis at the ostium. This was addressed with a 3.0 x 15 mm [place]. Result was 0% residual stenosis. OVERALL IMPRESSION: Successful percutaneous transluminal coronary angioplasty stent of the right coronary artery going from 80% initial stenosis to 0% residual. TRANSINT:[id number] Voice Confirmation ID: [id number] DOCUMENT ID: [id number] LEONELA PARKER MD CC: [id number] DICTATION DATE: 05/14/19 0848 SENIOR TELECOMMUNICATIONS ENGINEER: 05/14/19 1108 REG [facility] [address] [place] [address]
[~2019-05-14 06:53] MED LIST changes: +BAYER CHEWABLE81 MG PO; +FLUTICASONE PRO16 GM NASAL; +PLAVIX75 MG PO; +PRAVACHOL40 MG PO
[2019-05-14 07:43] VITALS: BP 126/69; Ht 177.8 cm; Wt 81.8 kg
[2019-05-14 08:08] LABS: ANION GAP 11.4 mmol/L (8-16); CALCIUM 8.9 mg/dL (8.5-10.1); CARBON DIOXIDE 28.4 mmol/L (21.0-32.0); CREATININE - SERUM 1.1 mg/dL (0.6-1.3); POTASSIUM - SERUM 3.8 mmol/L (3.5-5.1)
[2019-05-14 08:09] LABS: BASOPHILS 0.4 % (0-2); EOSINOPHILS 1.9 % (0-7); HEMATOCRIT 43.3 % (42.0-54.0); HEMOGLOBIN 15.3 g/dL (13.5-17.5); IMMATURE GRANULOCYTES 0.1 % (0-5); LYMPHOCYTES 28.2 % (15-50); MCHC 35.3 g/dL (31.0-37.0); MCV 93.5 fL (80.0-100.0); MEAN PLATELET VOLUME 10.8 fL (7.4-10.4); MONOCYTES 7.3 % (2-11); NEUTROPHILS 62.1 % (40-80); PLATELET COUNT 143 10x3/uL (130-400); RBC 4.63 10x6/uL (4.20-6.10); WBC 6.8 10x3/uL (4.8-10.8)
--- NOTE | 2019-05-14 09:07 | NUR ---
PT ARRIVED BY STRETCHER. PLACED ON MONITORS. ASSESSMENT COMPLETED. VSS. CALL LIGHT WITHIN REACH. FAMILY AT BEDSIDE AT THIS TIME.
--- NOTE | 2019-05-14 09:22 | NUR ---
RIGHT GROIN DRESSING C/D/I. NO S/S OF HEMATOMA NOTED. CALL LIGHT WITHIN REACH. FAMILY AT BEDSIDE.
--- NOTE | 2019-05-14 09:52 | NUR ---
RIGHT GROIN DRESSING C/D/I. NO S/S OF HEMATOMA NOTED. FEMSTOP IN PLACE. VSS. RIGHT PEDAL PULSE WEAK BUT PALPABLE AND RIGHT LEG WARM TO TOUCH.
--- NOTE | 2019-05-14 10:15 | NUR ---
PT C/O BACK PAIN. RIGHT GROIN DRESSING C/D/I. NO S/S OF HEMATOMA NOTED. PRESSURE REMOVED FROM FEMSTOP. DEC TO 70mmHg. HR DEC TO 41. GAVE ATROPINE 1 MG IV. PT HYPOTENSIVE AND STATES "I FEEL SICK". PT CONTINUED TO BE RESPONSIVE AND ANSWER QUESTIONS. HR INC TO 97 AND BP BACK TO NORMAL LIMITS. PT MORE ALERT. FEMSTOP REMOVED TOTALLY. NO HEMATOMA TO RIGHT GROIN NOTED. DRESSING C/D/I. WILL CONTINUE TO MONITOR.
--- NOTE | 2019-05-14 10:30 | NUR ---
PT RESTING COMFORTABLY. VSS. RIGHT GROIN DRESSING C/D/I. NO S/S OF HEMATOMA NOTED. CALL LIGHT WITHIN REACH. FAMILY AT BEDSIDE. PT DENIES BACK PAIN AT THIS TIME. PAIN MEDICATION ORDERED IF NEEDED PER DR. PARKER. NO OTHER NEEDS AT THIS TIME.
--- NOTE | 2019-05-14 11:00 | NUR ---
RIGHT GROIN DRESSING C/D/I. NO S/S OF HEMATOMA NOTED. VSS. PT DENIES PAIN AT THIS TIME. RIGHT PEDAL PULSE PALPABLE. FAMILY AT BEDSIDE.
--- NOTE | 2019-05-14 12:00 | NUR ---
RIGHT GROIN DRESSING C/D/I. NO S/S OF HEMATOMA NOTED. VSS. PT'S HEAD OF BED INC TO 30 DEGREES. TOLERATED WELL. SET UP WITH SANDWICH TRAY AND DRINK. DENIES NAUSEA/PAIN AT THIS TIME. WILL CONTINUE TO MONITOR.
--- NOTE | 2019-05-14 12:45 | NUR ---
DISCUSSED DISCHARGE INSTRUCTIONS WITH PT AND PT'S FAMILY. THEY VOICED UNDERSTANDING. PIV D/C'D WITH CATH TIP INTACT. TOLERATED WELL. RIGHT GROIN DRESSING C/D/I. NO S/S OF HEMATOMA NOTED. CALL LIGHT WITHIN REACH. PT INSTRUCTED TO GET UP AND DRESSED AT THIS TIME. AT BEDSIDE TO ASSIST.
--- NOTE | 2019-05-14 13:00 | NUR ---
PT AMBULATED TO RESTROOM. VOIDED WITHOUT DIFFICULTY. STEADY GAIT NOTED. PT TAKEN OUT TO VEHICLE BY WHEELCHAIR. NO S/S OF DISTRESS NOTED. ALL BELONGINGS AND PAPERWORK IN HAND.
== END 2019-05-14 13:00 | disposition home or self-care (01) ==
LOC: D.CATH 06:53
PROVIDERS: ATTEND Internal Medicine Interventional Cardiology
DX: I25.119 Atherosclerotic heart disease of native coronary artery with unspecified angina pectoris (principal); R07.9 Chest pain, unspecified

== ENCOUNTER 2019-05-30 21:25 | Emergency (ER) | payer MEDICARE, BC ==
[~2019-05-30] VITALS: Ht 177.8 cm; Wt 81.8 kg
[2019-05-30 21:31] VITALS: Ht 177.8 cm; Wt 81.8 kg
[2019-05-30 22:14] LABS: BASOPHILS 0.1 % (0-2); EOSINOPHILS 2.4 % (0-7); HEMATOCRIT 42.9 % (42.0-54.0); HEMOGLOBIN 15.1 g/dL (13.5-17.5); IMMATURE GRANULOCYTES 0.3 % (0-5); LYMPHOCYTES 26.7 % (15-50); MCH 33.2 pg (26.0-34.0); MCHC 35.2 g/dL (31.0-37.0); MCV 94.3 fL (80.0-100.0); MEAN PLATELET VOLUME 10.2 fL (7.4-10.4); NEUTROPHILS 63.5 % (40-80); PLATELET COUNT 145 10x3/uL (130-400); RBC 4.55 10x6/uL (4.20-6.10); RDW 13.1 % (11.5-14.5); WBC 7.6 10x3/uL (4.8-10.8)
[2019-05-30 22:24] LABS: APTT 29.3 SECONDS (22.8-39.4); CALC OSMOLALITY 283 mosm/kg (275-300); CALCIUM 9.4 mg/dL (8.5-10.1); CARBON DIOXIDE 31.7 mmol/L (21.0-32.0); CHLORIDE - SERUM 105 mmol/L (98-107); GLUCOSE 95 mg/dL (74-106); INR 1.04 (0.85-1.17); POTASSIUM - SERUM 3.8 mmol/L (3.5-5.1); PROTIME 13.6 SECONDS (11.6-15.0); SODIUM 142 mmol/L (136-145); UREA NITROGEN 16 mg/dL (7-18); eGFR NON AFRICAN AMERICAN 79 mL/min (90-120)
[2019-05-30 22:39] LABS: ALBUMIN 4.3 g/dL (3.4-5.0); ALKALINE PHOSPHATASE 92 U/L (30-120); ALT (SGPT) 27 U/L (10-68); BILIRUBIN - TOTAL 0.94 mg/dL (0.2-1.3); CKMB 5.4 U/L (0.0-3.6); CREATINE KINASE 342 UL (21-232); MAGNESIUM - SERUM 2.2 mg/dL (1.8-2.4); PROTEIN - SERUM 7.6 g/dL (6.4-8.2); TROPONIN-I < 0.017 ng/mL (0.000-0.060)
[2019-05-30] MEDS ORDERED: ISOSORBIDE MONO30 M1 PO (22:45)
[2019-05-30 23:07] VITALS: BP 134/73
== END 2019-05-30 23:07 | disposition home or self-care (01) ==
LOC: D.ER 21:25
PROVIDERS: Emergency Medicine
DX: I20.8 Other forms of angina pectoris (principal); Z95.5 Presence of coronary angioplasty implant and graft; K21.9 Gastro-esophageal reflux disease without esophagitis